=== PATIENT | male | born 1995 | race Caucasian/White ===

== ENCOUNTER 2019-01-22 21:05 | Emergency (ER) | payer OTHER ==
[~2019-01-22] VITALS: Ht 154.9 cm; Wt 70.8 kg
[2019-01-22] MEDS ORDERED: TENORMIN25 MG PO (21:38)
[2019-01-23] MEDS ORDERED: KETO10TA2 PO (07:37)
[2019-01-23] MEDS ORDERED: LEVSIN/SL0.125 MG SL (07:37)
[2019-01-23] MEDS ORDERED: INTESTINEX680 M1 PO (07:37)
[2019-01-23] MEDS ORDERED: CIPRO500 MG PO (07:37)
[2019-01-23] MEDS ORDERED: PEPCID AC20 MG PO (07:37)
[2019-01-23] MEDS ORDERED: FLAGYL500MG PO (07:37)
== END 2019-01-23 09:03 | disposition home or self-care (01) ==
LOC: ER 21:05
DX: K50.00 Crohn's disease of small intestine without complications (principal); R10.13 Epigastric pain